=== PATIENT | female | born 1940 | race Caucasian/White ===

== ENCOUNTER → 2017-08-11 | Outpatient (CLI) | payer OTHER ==
[~2017-08-11] MED LIST: CRESTOR10 MG PO; DIOVAN 80 MG TA80 M1 PO; PLAVIX 75 MG TA75 M1 PO
== END ==
LOC: ULTRA 06:19
DX: M25.561 Pain in right knee (principal); R10.31 Right lower quadrant pain

== ENCOUNTER → 2019-06-05 | Outpatient (CLI) | payer OTHER | LOC: BC 11:32 | DX: Z12.31 Encounter for screening mammogram for malignant neoplasm of breast (principal) ==

== ENCOUNTER → 2019-09-05 | Outpatient (CLI) | payer OTHER ==
[2019-09-05 11:18] LABS: CREATININE 1.4 mg/dL (0.6-1.0)
== END ==
LOC: LAB 10:29 → CAT 10:29
PROVIDERS: Nurse Practitioner
DX: N28.1 Cyst of kidney, acquired (principal)

== ENCOUNTER → 2021-04-05 | Outpatient (CLI) | payer OTHER | LOC: ULTRA 08:58 | PROVIDERS: ATTEND Family Medicine | DX: R10.11 Right upper quadrant pain (principal) ==

== ENCOUNTER 2021-04-25 09:38 | Inpatient (IN) | payer OTHER ==
[~2021-04-25] VITALS: Ht 144.8 cm; Wt 78.0 kg
[~2021-04-25 09:38] MED LIST changes: -CRESTOR10 MG PO; +CRESTOR20 MG PO
[2021-04-25] MEDS ORDERED: METFORMIN HCL500 MG PO (09:54)
[2021-04-25] MEDS ORDERED: AVAPRO 150 MG150 M1 PO (09:54)
[2021-04-25 10:16] LABS: BASOPHILS 0.4 % (0.0-2.0); EOSINOPHILS 0.3 % (0.0-3.0); HEMATOCRIT 45.3 % (37.0-47.0); LYMPHOCYTES 14.7 % (24.0-44.0); MCH 30.4 pg (26.0-34.0); MCV 98.2 fL (80.0-100.0); MONOCYTES 9.5 % (1.0-8.0); PLATELET COUNT 191 thou/uL (150-400); POLYS 75.1 % (36.0-66.0); RBC 4.61 mil/uL (4.20-5.00); RDW 16.7 % (10.5-14.5); WBC 13.3 thou/uL (4.0-11.0)
[2021-04-25 10:31] LABS: CALCIUM 9.1 mg/dL (8.5-10.1); CREATININE 1.8 mg/dL (0.6-1.0); POTASSIUM 5.4 mmol/L (3.5-5.1)
[2021-04-25 10:41] LABS: ALBUMIN 3.4 g/dL (3.4-5.0); TOTAL BILIRUBIN 0.5 mg/dL (0.2-1.0); TOTAL PROTEIN 7.2 g/dL (6.4-8.2)
[2021-04-25 13:45] LABS: ANISOCYTOSIS 1+; POIKILOCYTOSIS 1+
[2021-04-25 15:20] LABS: ALBUMIN 3.5 g/dL (3.4-5.0); TOTAL PROTEIN 7.7 g/dL (6.4-8.2)
[2021-04-25 16:24] VITALS: BP 123/63
[2021-04-25 17:04] VITALS: BP 131/79
[2021-04-25 17:40] VITALS: BP 124/86
--- NOTE | 2021-04-25 18:35 | NUR ---
ASSUMED CARE OF PATIENT AT 1540 FROM ER. PATIENT UP ON 6LNC WITH SLIGHT LABOR BREATHING. MOST ADMISSION COMPLETED, REMAINDER WILL BE FORWARD TO DOCUMENT IMAGING SPECIALIST TO COMPLETE IF POSSIBLE. PT IN BED EATING A DINNER TRAY WITH AT BEDSIDE. PATIENT HAS NO CONCERNS AT THIS TIME.
[2021-04-25 20:15] VITALS: BP 133/77
[2021-04-26] VITALS (106 sets, daily range): BP systolic 47–165; BP diastolic 13–99
[2021-04-26 04:55] LABS: CALCIUM 9.1 mg/dL (8.5-10.1); MAGNESIUM 2.2 mg/dL (1.8-2.4); POTASSIUM 5.8 mmol/L (3.5-5.1)
[2021-04-26 04:58] LABS: HEMATOCRIT 45.2 % (37.0-47.0); HEMOGLOBIN 13.8 gm/dL (12.0-15.0); MCH 30.9 pg (26.0-34.0); MCHC 30.5 g/dL (28.0-37.0); MCV 101.5 fL (80.0-100.0); RBC 4.45 mil/uL (4.20-5.00); RDW 17.1 % (10.5-14.5); WBC 16.9 thou/uL (4.0-11.0)
--- NOTE | 2021-04-26 05:15 | NUR ---
TOURIST AGENT ACTIVATED FOR DECREASED LOC AND FROTHING FROM THE MOUTH. PT RESPONDING TO STERNAL RUB ONLY. PT IMMEDIATELY BAGGED AND ATTEMPT TO PLACE ORAL AIRWAY BY RT. PT DECOMPENSATED QUICKLY AND JOAQUIN SEAY WAS CALLED AT 0443 FOR AGONAL BREATHS AND PEA ON THE MONITOR. SEE JOAQUIN SEAY FLOWSHEET FOR ADDITIONAL DETAILS.
[2021-04-26 05:41] LABS: BE(vivo) -5.5 mmol/L (-2 to +3); HCO3 26.4 mmol/L (22.0-26.0); PCO2 87.8 mmHg (35.0-45.0); PO2 80.6 mmHg (80.0-100.0); pH 7.096 (7.360-7.450); sO2 90.4 % (92.0-98.0)
--- NOTE | 2021-04-26 07:30 | NUR ---
ORDERS FOR EVAL AND TREAT HOWEVER Pt ON VENT FOLLOWING CODE BLUE. WILL PLACE ON HOLD AND AWAIT NEW ORDERS WHEN APPROPRIATE
--- NOTE | 2021-04-26 07:51 | EKG ---
[address] [place] [address] ELECTROCARDIOGRAM REPORT Name: ELGIN SOTO Room #: 242-P ADM IN M.R.#: [id number] Admission: 04/25/21 Attend Phys: Bryan Lincoln MD Discharge: Date of : 42 Report #: [id number] [facility] ED Test Date: 2021-04-25 Test Time: 11:05:20 Pat Name: ELGIN SOTO Department: Room: 242 Gender: F Communications Executive: : 1940 Requested By: Abiel Meredith Order Number: [id number] : Blake Phelps Measurements Intervals [place] Rate: 107 P: 51 NC: 154 QRS: 73 QRSD: 82 T: 36 QT: 324 QTc: 433 Interpretive Statements Sinus tachycardia Low voltage, precordial leads No previous ECG available for comparison Electronically Signed On 04-26-2021 7:51:14 CHARTER BOAT CAPTAIN by Blake Phelps [email or web address] <ELECTRONICALLY SIGNED> By: Blake Phelps MD, [facility] 04/26/21 0751 1105 1105 Blake Phelps MD, FACC /EPI
--- NOTE | 2021-04-26 08:12 | NUR ---
ASSESSMENT CHARTED, MEDS CHARTED GIVEN. PATIENT RESTING IN BED AT START OF SHIFT, AT BEDSIDE. PATIENT ON 6 LITERS NC, LUNGS WERE COARSE AND SOUNDED VERY WET. PATIENT WAS GETTING UP TO BSC DURING THE NIGHT. PATIENT WAS FOUND NON-RESPONSIVE IN HER ROOM AFTER 0400. GOOD PULSES, SHALLOW BREATHES, RAPID RESPONSE WAS CALLED PATIENT ENDED UP CODED, INTUBATED IN THE ICU. SEE RAPID REPORTING FOR DETAILS. WAS NOTIFIED OF PATIENT STATUS CHANGE AND ROOM CHANGE.
--- NOTE | 2021-04-26 08:16 | NUR ---
PATIENT ARRIVED TO ICU AT 0515 FROM S/P CODE BLUE. PATIENT INTUBATED PRIOR TO ARRIVAL. PATIENT ST ON MONITOR, PIV PRESENT, LUNGS COARSE. LANCE FIGUEROA, PRESENT AT BEDSIDE. VERNON CATHETER, OG TUBE, AND NEW IV PLACED. NEW ABG OBTAINED, CRITICAL VALUES PRESENT. DR. ESTRADA NOTIFIED, ORDERS RECEIVED TO GET CENTRAL LINE PLACED TODAY AND START PATIENT ON VERSED AND FENTANYL FOR SEDATION. BP WAS ALSO LOW ON ARRIVAL, LEVOPHED STARTED. SOFT WRIST RESTRAINTS PLACED ON PATIENT. PATIENT'S ARRIVED, UPDATED ON PATIENT CONDITION AND EVENTS. PATIENT MORE STABLE AT THIS TIME.
[2021-04-26 08:27] LABS: CHOLESTEROL 164 mg/dL (<200); HDL CHOLESTEROL 82 mg/dL (>40); LDL CHOLESTEROL 58 mg/dL (<100); TRIGLYCERIDE 122 mg/dL (<150); VLDL 24 mg/dL (<40)
[2021-04-26 09:25] LABS: BE(vivo) -6.5 mmol/L (-2 to +3); HCO3 25.4 mmol/L (22.0-26.0); PO2 85.1 mmHg (80.0-100.0); sO2 91.5 % (92.0-98.0)
[2021-04-26 09:26] LABS: PCO2 87.1 mmHg (35.0-45.0); pH 7.082 (7.360-7.450)
--- NOTE | 2021-04-26 10:32 | 2DMMODE ---
[facility] [place] [address] 2 D/M-MODE ECHOCARDIOGRAM Name: ELGIN SOTO Room #: 242-P ADM IN M.R.#: [id number] Admission: 04/25/21 Attend Phys: Bryan Lincoln MD Discharge: Date of : 42 Report #: [id number] THIS REPORT FOR: cc: Ariel Abbott James A. DO Santiago, Patrick MD [facility] ~ ADDENDUM APPROVED REPORT Study performed: 04/26/2021 08:43:12 EXAM: Comprehensive 2D, Doppler, and color-flow Echocardiogram Patient Location: ICU Room #: 242 Status: routine BSA: 1.59 HR: 128 bpm BP: 131/35 mmHg Rhythm: Tachycardia Other Information Study Quality: Adequate Technically limited study due to body habitus, ventilator. Indications Cardiac arrest, CHF. 2D Dimensions LVOT Diam: 17.95 (18-24mm) Ascending Ao: 34.36 (22-36mm) Left Atrium: 41.30 (27-40mm) Aortic Root: 28.42 mm Volumes Left Atrial Volume (Systole) Single Plane 4CH: 47.08 mL Single Plane 2CH: 41.96 mL LA ESV Index: 30.00 mL/m2 Aortic Valve AoV Peak Andrey.: 1.78 m/s AO Peak Gr.: 12.64 mmHg LVOT Max P.43 mmHg LVOT Max V: 1.54 m/s JASMYNE Vmax: 2.19 cm2 [facility] [address] [place] [address] 2 D/M-MODE ECHOCARDIOGRAM Name: ELGIN SOTO Room #: 242-P ADM IN M.R.#: [id number] Admission: 04/25/21 Attend Phys: Bryan Lincoln, Discharge: Date of : 42 Report #: [id number] Pulmonary Valve PV Peak Andrey.: 1.26 m/s PV Peak Gr.: 6.31 mmHg Tricuspid Valve TR Peak Andrey.: 3.69 m/s RAP Estimate: 15.00 mmHg TR Peak Gr.: 55.00 mmHg PA Pressure: 70.00 mmHg Left Ventricle The left ventricle is normal size. There is normal LV segmental wall motion. There is normal left ventricular wall thickness. Left ventricular systolic function is hyperdynamic. LVEF is 70%. This study is not technically sufficient to allow evaluation of the LV diastolic function. Right Ventricle The right ventricle is normal size. The right ventricular systolic function is normal. Atria Left atrium is moderately dilated. Right atrium is moderately dilated. Aortic Valve The aortic valve is normal in structure. No aortic regurgitation is present. There is no aortic valvular stenosis. Mitral Valve Heavily calcified annulus. Moderate mitral stenosis (PPG 15mmHg, MPG 7mmHg). There is no mitral valve regurgitation noted. Tricuspid Valve The tricuspid valve is normal in structure. Mild tricuspid regurgitation. Severe pulmonary hypertension, estimated PAP is 70mmHg. Pulmonic Valve The pulmonary valve is normal in structure. Trace pulmonic regurgitation. Great Vessels The aortic root is normal in size. The ascending aorta is normal in size. IVC is dilated and collapses <50% with inspiration. Pericardium [facility] [address] [place] [address] 2 D/M-MODE ECHOCARDIOGRAM Name: ELGIN SOTO Room #: 242-P [facility] IN [facility].#: [id number] Admission: 04/25/21 Attend Phys: Bryan Lincoln, Discharge: Date of : 42 Report #: [id number] There is no pericardial effusion. <Conclusion> Normal left ventricular size/wall thickness ejection fraction at least 65% Normal right ventricle size/function Moderate biatrial enlargement Normal aortic valve structure and function Heavily calcified mitral annulus Moderate mitral valve stenosis mean gradient 7 mmHg Mild tricuspid valve insufficiency Severe pulmonary systolic pressure estimated at 70 mmHg No pericardial effusion Normal aortic size. <ELECTRONICALLY SIGNED> By: Blake Phelps MD, FACC 04/26/211031 31 31 Blake Phelps MD, FACC /INF
--- NOTE | 2021-04-26 12:00 | NUR ---
80-year-old female. HX of HTN, DM type 2,stroke 30 years ago. The patient states that for the last 2 weeks she has been feeling short of breath, she denies any chest pain, palpitations. She does state that when she gets up sometimes she gets dizzy. She states that sometimes she has nausea but this is off and on. Denies any abdominal pain, diarrhea although sometimes she has constipation. She has a little bit of swelling on her legs however she denies any other symptoms at this time. CODE BLUE while on here CCU and transfered to the ICU. On a vent 100% FIO2, peep 5. Negative for covid. Discussed during los and unit rounds. Cm visited with her spouse at bedside Ian, # [phone]. Prior to hospital she was independent, no dme, manage her own medication. drives vehicle. 13 stairs up to the bedroom and was able to do the stair everyday. hh in past, unable to recall who it was with. Will cont. following as needed.
[2021-04-26 12:03] LABS: CALCIUM 8.3 mg/dL (8.5-10.1); CREATININE 2.3 mg/dL (0.6-1.0)
[2021-04-26 12:08] LABS: POTASSIUM 6.1 mmol/L (3.5-5.1)
[2021-04-26 14:31] LABS: BE(vivo) 2.3 mmol/L (-2 to +3); HCO3 27.4 mmol/L (22.0-26.0); PCO2 44.5 mmHg (35.0-45.0); PO2 155.1 mmHg (80.0-100.0); pH 7.408 (7.360-7.450)
--- NOTE | 2021-04-26 14:56 | EKG ---
[address] [place] [address] ELECTROCARDIOGRAM REPORT Name: ELGIN SOTO Room #: 242-P ADM IN M.R.#: [id number] Admission: 04/25/21 Attend Phys: Bryan Lincoln MD Discharge: Date of : 42 Report #: [id number] [facility] Test Date: 2021-04-26 Test Time: 04:54:00 Pat Name: ELGIN SOTO Department: Room: 242 P Gender: F Appraiser Timber: MEDHAT : 1940 Requested By: Denisse Phillips Order Number: [id number] MD: Blake Phelps Measurements Intervals [place] Rate: 139 P: 37 [place]: 156 QRS: 46 QRSD: 93 T: 65 QT: 276 QTc: 420 Interpretive Statements Sinus tachycardia Borderline low voltage, extremity leads Compared to ECG 04/25/2021 11:05:20 No significant changes Electronically Signed On 04-26-2021 14:55:50 SCHOOL CROSSING GUARD SUPERVISOR by Blake Phelps [email or web address] <ELECTRONICALLY SIGNED> By: Blake Phelps MD, [facility] 04/26/21 1455 0454 045 Blake Phelps MD, FACC /EPI
--- NOTE | 2021-04-26 16:23 | NUR ---
CL PLACED LT IJ
--- NOTE | 2021-04-26 17:29 | NUR ---
discussed with Dr. Lincoln hypothermia protocol- not indicated at this time. pt aspirated one lung farooq out, foaming at mouth, hypoxia cause of code.
--- NOTE | 2021-04-26 19:30 | NUR ---
unreponsive on vent with fent/versed infusing. ST with all p-waves variable- Wandering Atrial Pacemaker. titrating levo to keep map >/= 65, elevated K+, administered "amp dextrose following by regular insulin" twice during shift, administered patriomer calcium. sodium bicarb 2 amps administered for abg's. clarified/dc'd fluid orders per Dr. Lincoln. received orders from Dr. Crow when pt having frequent pac's and short runs of afib rvr with rate up to 150's. amiodarone bolus/gtt started. lungs coarse, pink/bloody secretions from cpr/intubation, kulkarni urine output improved with lasix administration. spouse present, providing support. updated on all cares. pt critical, slowly progressing.
[2021-04-27] VITALS (106 sets, daily range): BP systolic 54–182; BP diastolic 14–95
[2021-04-27 04:36] LABS: HEMATOCRIT 38.5 % (37.0-47.0); HEMOGLOBIN 12.4 gm/dL (12.0-15.0); MCH 30.3 pg (26.0-34.0); MCHC 32.1 g/dL (28.0-37.0); RBC 4.08 mil/uL (4.20-5.00); RDW 15.7 % (10.5-14.5); WBC 17.2 thou/uL (4.0-11.0)
[2021-04-27 04:40] LABS: MCV 94.5 fL (80.0-100.0)
[2021-04-27 04:54] LABS: ALBUMIN 2.3 g/dL (3.4-5.0); CALCIUM 8.8 mg/dL (8.5-10.1); CREATININE 2.7 mg/dL (0.6-1.0); PHOSPHORUS 1.4 mg/dL (2.5-4.9); POTASSIUM 3.2 mmol/L (3.5-5.1)
--- NOTE | 2021-04-27 05:40 | NUR ---
PT HAVING BURSTS OF SVT UP TO 150 LASTING ONLY 1 TO 2 SECONDS. AMIO CONT AT AT .[address] PRICE NOTIFIED. LEFT ORDERS FOR 150 MG BOLUS OF AMIODARTONE AND TO INCREASE GTT TO 1 MG. WILL CONT TO MONITOR
--- NOTE | 2021-04-27 06:00 | NUR ---
PT IS MUCH MORE ALERT THIS HOUR DIAS REMAINS RESTRAINED
--- NOTE | 2021-04-27 06:00 | NUR ---
REMAINS INTUBATED AND SEDATED WITH FENTANYL AND VERSED. LEVOPHED FOR BP SUPPORT AMIO GTT AT 1 MG. CONT IN SINUS TACH LUNGS COARSE RHONCHI BILAT 2800 CC UO THIS SHIFT. PROGRWAAINBG TOWARD GOALS.
--- NOTE | 2021-04-27 07:47 | EKG ---
[address] [address] ELECTROCARDIOGRAM REPORT Name: ELGIN SOTO Room #: 242-P ADM IN M.R.#: [id number] Admission: 04/25/21 Attend Phys: Bryan Lincoln MD Discharge: Date of : 42 Report #: [id number] [facility] Test Date: 2021-04-26 Test Time: 16:08:37 Pat Name: ELGIN SOTO Department: Room: 242 P Gender: F Stump Shooter: DAJUAN : 1940 Requested By: Alcon Levine Order Number: [id number] MD: Blake Phelps Measurements Intervals [place] Rate: 135 P: 62 NC: 138 QRS: 56 QRSD: 76 T: 35 QT: 316 QTc: 474 Interpretive Statements SINUS ARRHYTHMIA Borderline low voltage, extremity leads Compared to ECG 04/26/2021 04:54:00 Sinus tachycardia no longer present Electronically Signed On 04-27-2021 7:46:11 BUTCHER APPRENTICE by Blake Phelps [email or web address] <ELECTRONICALLY SIGNED> By: Blake Phelps MD, [facility] 04/27/21 0746 1608 07 Blake Phelps MD, FACC /EPI
--- NOTE | 2021-04-27 07:48 | EKG ---
[address] [place] [address] ELECTROCARDIOGRAM REPORT Name: ELGIN SOTO Room #: 242-P ADM IN M.R.#: [id number] Admission: 04/25/21 Attend Phys: Bryan Lincoln MD Discharge: Date of : 42 Report #: [id number] [facility] Test Date: 2021-04-27 Test Time: 07:20:30 Pat Name: ELGIN SOTO Department: Room: 242 P Gender: F Retail Advertising Executive: CANDY : 1940 Requested By: Adair Gupta Order Number: [id number] MD: Blake Phelps Measurements Intervals [place] Rate: 110 P: 94 IA: 131 QRS: 54 QRSD: 75 T: 241 QT: 326 QTc: 442 Interpretive Statements Sinus tachycardia Multiform ventricular premature complexes Borderline low voltage, extremity leads Borderline repolarization abnormality Compared to ECG 04/26/2021 16:08:37 Ventricular premature complex(es) now present Supraventricular tachycardia no longer present Electronically Signed On 04-27-2021 7:47:59 ALLIANCE MANAGER by Blake Phelps [email or web address] <ELECTRONICALLY SIGNED> By: Blake Phelps MD, FAC 04/27/21 0747 9 9 Blake Phelps MD, [facility] /EPI
--- NOTE | 2021-04-27 09:04 | NUR ---
PATIENT TRANSFERRED TO ICU AFTER CODE BLUE AND IS ON THE VENT. WILL NEED NEW ORDERS ONCE MEDICALLY APPROPRIATE.
--- NOTE | 2021-04-27 15:47 | NUR ---
Discussed during unit rounds with pulmonary MD. Vent 70% FIO2, peep 5, amio gtt and levo. Will cont. following as needed for dc needs.
[2021-04-28] VITALS (76 sets, daily range): BP systolic 75–159; BP diastolic 31–93
--- NOTE | 2021-04-28 00:13 | HC ---
[place] [address] CONSULTATION Name: ELGIN SOTO Room #: 242-P ADM IN M.R.#: [id number] Admission: 04/25/21 Attend Phys: Bryan Lincoln MD Discharge: Date of : 42 Report #: [id number] THIS REPORT FOR: cc: Ariel Abbott James A. DO Geha, Daniel J. MD ~ DATE OF SERVICE: 04/26/2021 INFECTIOUS DISEASE CONSULTATION REASON FOR CONSULTATION: I was asked to evaluate concerning respiratory failure and aspiration pneumonia. HISTORY OF PRESENT ILLNESS: The patient is a 80-year-old admitted on 04/25/2021 with several-week history of increasing shortness of breath, intermittent nonproductive cough, lower extremity swelling without fever, chills, or sweats. No hemoptysis or sputum production. No chest pain. She did have some palpitations. On presentation, she had evidence of acute kidney injury with hyperkalemia. She subsequently had a cardiac arrest and now is intubated. There was evidence of gross aspiration. COVID screening was negative. Unclear if she has been vaccinated. No nausea, vomiting, or diarrhea reported. She now has good urine output via Gonzalez catheter. She does have underlying history of diabetes and hypertension as well as stroke. REVIEW OF SYSTEMS: A 14-point review of system was negative other than what has been described above as noted by nursing staff as the patient was intubated. ALLERGIES: Propofol. MEDICATIONS: As noted on her MAR, which were reviewed. PAST MEDICAL HISTORY: Hypertension, diabetes, stroke, hyperlipidemia, chronic kidney disease. FAMILY HISTORY: Not available. SOCIAL HISTORY: No reported tobacco use or alcohol. PHYSICAL EXAMINATION: GENERAL: Currently, afebrile, hemodynamically stable on Levophed drip. Peripheral IV in place. PICC line is to be placed. SKIN: Without rash or decubitus. No palpable adenopathy. Pupils were pinpoint. She did respond to painful stimulus and was purposeful. Mouth without mucositis. She was orally intubated. NECK: Supple. LUNGS: Coarse bilaterally. [address] [place] [address] CONSULTATION Name: ELGIN SOTO Room #: 242-P [facility] IN M.R.#: [id number] Admission: 04/25/21 Attend Phys: Bryan Lincoln MD Discharge: Date of : 42 Report #: [id number] HEART: Regular, without appreciable murmur, gallop, or rub. She was tachycardic. ABDOMEN: Soft with positive bowel sounds. No appreciable mass. GENITOURINARY: External genitalia with indwelling Gonzalez catheter. RECTAL: Not performed. EXTREMITIES: With 1+ peripheral edema to lower extremities. No cyanosis. Moves all of her extremities. LABORATORY DATA: Reviewed. MICROBIOLOGY: Reviewed. IMAGING: Chest x-ray reviewed. IMPRESSION: A 80-year-old presents with congestive heart failure, now post-code with aspiration, right lung pneumonia. She has qctew-yo-xxwnahr kidney disease in association with diabetes, hyperkalemia, and hypotension. RECOMMENDATION: We will treat for acute aspiration pneumonia. She was screened for COVID-19, which is negative. We will also screen for other community-acquired pulmonary infection. Continue full ICU support. <ELECTRONICALLY SIGNED> By: Ed Hernadez MD 04/28/21 0013 1424 2243 Ed Hernadez MD /nt
--- NOTE | 2021-04-28 04:02 | NUR ---
NO SIGNIFICANT CHANGES OVER NIGHT. PT CONTINUES TO BE IN ST WITH MANY PACS ON TELE. AMIO DRIP INFUSING FOR RATE CONTROL. SEDATION INCREASED BUT IT SEEMED TO HAVE LITTLE EFFECT ON IMPROVING HER TACHYCARDIA. PT REMAINS ON VENT WITH 40% FIO2. VERNON TO DD WITH GOOD URINE OUTPUT. TF INFUSING VIA OGT. WILL MONITOR FURTHER.
[2021-04-28 05:16] LABS: HEMATOCRIT 39.6 % (37.0-47.0); HEMOGLOBIN 12.7 gm/dL (12.0-15.0); MCHC 32.1 g/dL (28.0-37.0); MCV 93.6 fL (80.0-100.0); PLATELET COUNT 191 thou/uL (150-400); RBC 4.23 mil/uL (4.20-5.00); WBC 22.4 thou/uL (4.0-11.0)
[2021-04-28 05:38] LABS: CALCIUM 8.8 mg/dL (8.5-10.1); CREATININE 2.6 mg/dL (0.6-1.0); POTASSIUM 3.2 mmol/L (3.5-5.1)
--- NOTE | 2021-04-28 05:58 | NUR ---
LEVOPHED DRIP TITRATED DOWN SLIGHTLY. SO FAR PT IS TOLERATING IT WELL. HR SLIGHTLY LESS TACHYCARDIC WITH DECREASE IN LEVO RATE.
--- NOTE | 2021-04-28 08:37 | EKG ---
[place] [address] [facility] [employer] [place] [address] ELECTROCARDIOGRAM REPORT Name: ELGIN SOTO Room #: 242-P ADM IN M.R.#: [id number] Admission: 04/25/21 Attend Phys: Bryan Lincoln MD Discharge: Date of : 41 Report #: [id number] [facility] Test Date: 2021-04-28 Test Time: 08:03:09 Pat Name: ELGIN SOTO Department: Room: 242 P Gender: F Journeyman Electrician Pv Installer: CANDY : 1940 Requested By: Maya Phoenix Order Number: [id number] MD: Crispin Mejia Measurements Intervals [place] Rate: 143 P: 93 RI: 66 QRS: 51 QRSD: 81 T: -31 QT: 337 QTc: 520 Interpretive Statements Multifocal atrial tachycardia Abnormal R-wave progression, late transition Nonspecific ST segment abnormality Compared to ECG 04/27/2021 07:20:30 No significant change was found Electronically Signed On 04-28-2021 8:37:16 DIAMOND CUTTER by Crispin Mejia [email or web address] <ELECTRONICALLY SIGNED> By: Crispin Mejia MD, [facility] 04/28/21 0837 2 2 Crispin Mejia MD, [facility] /EPI
[2021-04-28 10:28] LABS: ABSOLUTE NEUTROPHILS 17.9 thou/uL (1.4-8.2)
[2021-04-28 10:29] LABS: ANISOCYTOSIS 1+
[2021-04-29] VITALS (51 sets, daily range): BP systolic 80–151; BP diastolic 29–54
--- NOTE | 2021-04-29 04:14 | NUR ---
PT REMAINS ON VENT AND SEDATED.SPO2 >92% ,FIO2 OF 40% THROUGHOUT THE SHIFT.SR W/OCCASIONAL PACS ON THE TELE MONITOR.ON LULÚ DRIP TO SUPPORT B/P.REmains ON AMIO DRIP PER ORDERS.JANEEN CARRIZALES,ADEQUATE UO.ASSESSMENT COMPLETED DOCUMENTED.
[2021-04-29 05:41] LABS: HEMATOCRIT 37.7 % (37.0-47.0); HEMOGLOBIN 11.9 gm/dL (12.0-15.0); MCH 30.2 pg (26.0-34.0); MCHC 31.5 g/dL (28.0-37.0); MCV 95.6 fL (80.0-100.0); RBC 3.94 mil/uL (4.20-5.00); RDW 16.3 % (10.5-14.5); WBC 19.7 thou/uL (4.0-11.0)
[2021-04-29 06:25] LABS: ALBUMIN 1.9 g/dL (3.4-5.0); CALCIUM 8.2 mg/dL (8.5-10.1); CREATININE 2.8 mg/dL (0.6-1.0); MAGNESIUM 2.2 mg/dL (1.8-2.4); PHOSPHORUS 4.7 mg/dL (2.5-4.9); POTASSIUM 4.5 mmol/L (3.5-5.1)
--- NOTE | 2021-04-29 15:20 | NUR ---
PT HAS BEEN RESTING COMFORTABLY MOST OF THE DAY, HR IN LOW 60'S TO HIGH 50'S. PT DOES NOT TOLERATE BEING OF PRESSOR SUPPORT AT ALL FOR MORE THAN A FEW MINUTES BEFORE BECOMING HYPOTENSIVE. PLAN IS TO GRADUALLY TITRATE DOWN PT VERSED TO COMPLETE A POSSIBLE CPAP TRAIL TODAY.
--- NOTE | 2021-04-29 16:48 | NUR ---
Discussed during unit rounds with pulmonary MD. vent, nutritional support. Start cpap trials.
[2021-04-30] VITALS (51 sets, daily range): BP systolic 73–143; BP diastolic 26–52
--- NOTE | 2021-04-30 04:13 | NUR ---
PT REMAINS SEDATED AND ON VENT.FENTANYL AND VERSED FOR VENT MANAGEMENT.TOLERATING SEDATION TITRATED DOWN.ON LULÚ DRIP AND AMIO DRIP FOR B/P SUPPORT AND HEART RYTHM CONTROL.PT NOT TOLERATING LULÚ TITRATION,B/P DROPS WHEN LULÚ IS TITRATED DOWN,CURENTLY INFUSING AT 1.6MCG.UO BETTER THIS SHIFT.POC IS TO HAVE CPAP TRIAL TODAY.ASSESSMENT COMPLETED DOCUMENTED.
[2021-04-30 05:34] LABS: HEMATOCRIT 35.9 % (37.0-47.0); HEMOGLOBIN 11.2 gm/dL (12.0-15.0); MCH 30.2 pg (26.0-34.0); MCHC 31.3 g/dL (28.0-37.0); MCV 96.4 fL (80.0-100.0); RBC 3.72 mil/uL (4.20-5.00); RDW 15.9 % (10.5-14.5); WBC 18.1 thou/uL (4.0-11.0)
[2021-04-30 05:59] LABS: ALBUMIN 2.6 g/dL (3.4-5.0); CALCIUM 8.8 mg/dL (8.5-10.1); CREATININE 3.4 mg/dL (0.6-1.0); PHOSPHORUS 4.6 mg/dL (2.5-4.9)
--- NOTE | 2021-04-30 15:49 | NUR ---
Vent 40%, peep 5. nutritional support. Cpap trials. Brian and Amio gtt. No anticipated dc over the weekend. Will cont following as needed.
--- NOTE | 2021-04-30 17:18 | NUR ---
PT IS NOT PROGRESSING TOWARD THE POC EVIDENCED BY NOT FOLLOWING COMMANDS WHILE SEDATION IS OFF; SHE REQUIRES INCREASING AMOUNTS OF NEOSYNEPHRINE TO MAINTAIN ADEQUATE PERFUSION. TODAY NEUROLOGY IS CONSULTED FOR A WORKUP AND A CT OF THE HEAD IS COMPLETED W/O CONTRAST. THIS PT IS MAKING ADEQUATE UO BUT HER GFR IS LOW AND CREATININE IS 3.4. NEPHRO IS FOLLOWING, FUROSEMIDE IS DIURESING HER APPROPRIATELY.
[2021-04-30 21:29] LABS: URINE BILIRUBIN NEGATIVE (Negative); URINE BLOOD 2+ (Negative); URINE CLARITY CLEAR; URINE COLOR YELLOW; URINE GLUCOSE-RANDOM* NEGATIVE (Negative); URINE KETONES NEGATIVE (Negative); URINE LEUKOCYTES-REFLEX NEGATIVE (Negative); URINE NITRITE-REFLEX NEGATIVE (Negative); URINE PROTEIN (DIPSTICK) TRACE (Negative); URINE UROBILINOGEN 0.2 E.U./dl (0.2-1.0)
[2021-04-30 21:51] LABS: BACTERIA-REFLEX 1-9 Few /HPF (None Seen); CASTS None Seen /LPF (None Seen); CRYSTALS None Seen /LPF (None Seen); SQUAMOUS 0-3 Few /LPF (0-3); URINE RBC 3-10 Few /HPF (NONE SEEN); URINE WBC-REFLEX 0-5 Rare /HPF (0-5)
[2021-05-01] VITALS (46 sets, daily range): BP systolic 93–155; BP diastolic 30–76
[2021-05-01 05:10] LABS: HEMATOCRIT 34.7 % (37.0-47.0); HEMOGLOBIN 10.7 gm/dL (12.0-15.0); MCH 29.8 pg (26.0-34.0); MCHC 30.8 g/dL (28.0-37.0); MCV 96.9 fL (80.0-100.0); RBC 3.58 mil/uL (4.20-5.00); RDW 16.4 % (10.5-14.5); WBC 17.8 thou/uL (4.0-11.0)
[2021-05-01 05:23] LABS: CALCIUM 8.6 mg/dL (8.5-10.1); CREATININE 3.8 mg/dL (0.6-1.0)
--- NOTE | 2021-05-01 07:59 | NUR ---
Pt still not waking up. +ve cough/gag/corneal reflex. grimances to oral care
--- NOTE | 2021-05-01 18:24 | NUR ---
PT STILL NOT RESPONDING TO COMMANDS DESPITE BEING OFF SEDATION FOR OVER 24HRS. PT DOES HAVE POSITIVE GAG AND GRIMACES WITH PAIN. PATIENT ALSO YAWNS. EEG IS SUPPOSED TO BE DONE WELL AN MRI FOR THE HEAD. AT BEDSIDE MOST OF THE DAY. HOME PHONE IS [phone] NAROTICS WASTED WITH MIRELA RAMIREZ, BLUE SHEETS SIGNED AND SENT TO PHARMACY.
[2021-05-01 22:00] LABS: ALBUMIN 3.1 g/dL (3.4-5.0); CREATININE 3.7 mg/dL (0.6-1.0); PHOSPHORUS 5.2 mg/dL (2.5-4.9); TOTAL BILIRUBIN 0.9 mg/dL (0.2-1.0); TOTAL PROTEIN 6.9 g/dL (6.4-8.2)
[2021-05-02] VITALS (50 sets, daily range): BP systolic 93–129; BP diastolic 34–53
--- NOTE | 2021-05-02 04:25 | NUR ---
PT ON VENT,OFF SEDATION,REMAINS UNRESPONSIVE.SOMETIMES GRIMACES DURING ORAL CARE.PT ALSO SOMETIMES BITES ON HER ETT.NO PURPOSEFUL MOVEMENTS.VERNON DD,FAIR AMOUNT OF URINE.NO PROGRESS NOTED THIS SHIFT.POC IS TO HAVE EEG AND MRI TODAY.
[2021-05-02 05:47] LABS: HEMATOCRIT 33.6 % (37.0-47.0); HEMOGLOBIN 10.6 gm/dL (12.0-15.0); MCH 29.9 pg (26.0-34.0); MCHC 31.7 g/dL (28.0-37.0); MCV 94.4 fL (80.0-100.0); RBC 3.55 mil/uL (4.20-5.00); RDW 16.1 % (10.5-14.5); WBC 20.1 thou/uL (4.0-11.0)
[2021-05-02 06:07] LABS: ALBUMIN 3.3 g/dL (3.4-5.0); CALCIUM 8.6 mg/dL (8.5-10.1); CREATININE 3.6 mg/dL (0.6-1.0); MAGNESIUM 2.2 mg/dL (1.8-2.4); POTASSIUM 4.8 mmol/L (3.5-5.1); TOTAL BILIRUBIN 0.9 mg/dL (0.2-1.0); TOTAL PROTEIN 6.7 g/dL (6.4-8.2)
--- NOTE | 2021-05-02 09:00 | NUR ---
EEG starting. Patient son in room at this time.
--- NOTE | 2021-05-02 12:49 | NUR ---
ASKED TO TRIAL PATIENT TODAY SINCE SHE IS ON MINIMAL VENT SETTINGS TO SEE HOW SHE WOULD DO. HER WOB INCREASED INTO THE 40'S AND HER VT WERE LESS THAN 100. PATIENT DIDN'T MAKE IT TO THE 5 MINUTE AI AND WAS PUT BACK ON HER ORIGINAL SETTINGS. DR ESTRADA NOTIFIED.
--- NOTE | 2021-05-02 19:57 | NUR ---
Patient not progressing towards plan of care as evidenced by continued need of the ventilator, not following commands or waking up. Neurologist discussed findings from EEG with patient spouse. Nurse updated patients spouse throughout the day on plan of care.
[2021-05-03] VITALS (68 sets, daily range): BP systolic 99–135; BP diastolic 36–67
[2021-05-03 03:55] LABS: HEMATOCRIT 30.8 % (37.0-47.0); HEMOGLOBIN 9.8 gm/dL (12.0-15.0); MCH 30.2 pg (26.0-34.0); MCHC 31.9 g/dL (28.0-37.0); MCV 94.7 fL (80.0-100.0); RBC 3.25 mil/uL (4.20-5.00); RDW 16.3 % (10.5-14.5); WBC 15.6 thou/uL (4.0-11.0)
[2021-05-03 04:02] LABS: ALBUMIN 3.5 g/dL (3.4-5.0); CREATININE 3.8 mg/dL (0.6-1.0); MAGNESIUM 2.3 mg/dL (1.8-2.4); POTASSIUM 4.2 mmol/L (3.5-5.1); TOTAL BILIRUBIN 0.9 mg/dL (0.2-1.0); TOTAL PROTEIN 6.5 g/dL (6.4-8.2)
--- NOTE | 2021-05-03 17:28 | NUR ---
PATIENT NOT PROGRESSING TOWARDS THE PLAN OF CARE. MRI DONE TODAY.
[2021-05-04] VITALS (43 sets, daily range): BP systolic 99–142; BP diastolic 42–69
[2021-05-04 05:11] LABS: HEMATOCRIT 30.4 % (37.0-47.0); HEMOGLOBIN 9.8 gm/dL (12.0-15.0); MCH 30.5 pg (26.0-34.0); MCHC 32.1 g/dL (28.0-37.0); MCV 95.1 fL (80.0-100.0); RBC 3.2 mil/uL (4.20-5.00); RDW 16.3 % (10.5-14.5); WBC 15.1 thou/uL (4.0-11.0)
[2021-05-04 05:46] LABS: ALBUMIN 3.9 g/dL (3.4-5.0); MAGNESIUM 2.5 mg/dL (1.8-2.4); POTASSIUM 3.7 mmol/L (3.5-5.1); TOTAL BILIRUBIN 0.8 mg/dL (0.2-1.0); TOTAL PROTEIN 6.9 g/dL (6.4-8.2)
--- NOTE | 2021-05-04 07:14 | NUR ---
No progress toward goals. Pt remains minimally responsive to noxious stimuli -- will grimace, slightly withdraw extremities. Continues to have positive cough/gag and corneal reflexes. No changes in oxygen needs. Monitor remains sinus rhythm with PACs; pt remains on Phenylnephrine for BP support to keep MAP >/= 60. Tolerating tube feeding well, but was having frequent liquid brown stools. FMS placed to protect skin.
--- NOTE | 2021-05-04 10:03 | EKG ---
[address] [address] ELECTROCARDIOGRAM REPORT Name: ELGIN SOTO Room #: 242-P ADM IN M.R.#: [id number] Admission: 04/25/21 Attend Phys: Bryan Lincoln MD Discharge: Date of : 42 Report #: [id number] [facility] Test Date: 2021-05-04 Test Time: 08:38:53 Pat Name: ELGIN SOTO Department: Room: 242 P Gender: F Director Phone: CANDY : 1940 Requested By: Maya Phoenix Order Number: [id number] MD: Blake Phelps Measurements Intervals [place] Rate: 73 P: MS: QRS: 60 QRSD: 84 T: 223 QT: 371 QTc: 409 Interpretive Statements Atrial fibrillation Borderline repolarization abnormality Compared to ECG 04/28/2021 08:03:09 Ectopic atrial tachycardia, multifocal no longer present ST (T wave) deviation no longer present Electronically Signed On 05-04-2021 9:24:18 SENIOR JAVA J2EE DEVELOPER by Blake Phelps [email or web address] <ELECTRONICALLY SIGNED> By: Blake Phelps MD, [facility] 05/04/21923 7 7 Blake Phelps MD, FAC /EPI
[2021-05-05] VITALS (48 sets, daily range): BP systolic 91–146; BP diastolic 43–62
[2021-05-05 04:35] LABS: BE(vivo) -2.7 mmol/L (-2 to +3); HCO3 23.4 mmol/L (22.0-26.0); PO2 71.2 mmHg (80.0-100.0); sO2 93.1 % (92.0-98.0)
[2021-05-05 04:36] LABS: pH 7.324 (7.360-7.450)
[2021-05-05 06:00] LABS: HEMATOCRIT 31.1 % (37.0-47.0); HEMOGLOBIN 9.8 gm/dL (12.0-15.0); MCH 29.8 pg (26.0-34.0); MCHC 31.4 g/dL (28.0-37.0); MCV 94.8 fL (80.0-100.0); RBC 3.28 mil/uL (4.20-5.00); RDW 16.4 % (10.5-14.5)
[2021-05-05 06:18] LABS: ALBUMIN 3.8 g/dL (3.4-5.0); CALCIUM 9.3 mg/dL (8.5-10.1); CREATININE 4.6 mg/dL (0.6-1.0); POTASSIUM 3.6 mmol/L (3.5-5.1); TOTAL BILIRUBIN 0.8 mg/dL (0.2-1.0)
--- NOTE | 2021-05-05 07:54 | EKG ---
[address] [place] [address] ELECTROCARDIOGRAM REPORT Name: ELGIN SOTO Room #: 242-P ADM IN M.R.#: [id number] Admission: 04/25/21 Attend Phys: Bryan Lincoln MD Discharge: Date of : 42 Report #: [id number] [facility] Test Date: 2021-05-05 Test Time: 07:44:22 Pat Name: ELGIN SOTO Department: Room: 242 P Gender: F Hot Walker: CANDY : 1940 Requested By: Maya Phoenix Order Number: [id number] MD: Crispin Mejia Measurements Intervals [place] Rate: 79 P: 33 OH: 165 QRS: 54 QRSD: 87 T: 176 QT: 394 QTc: 452 Interpretive Statements Sinus rhythm Nonspecific ST and T wave abnormality Prolonged QT interval Compared to ECG 05/04/2021 08:38:53 Atrial fibrillation no longer present Electronically Signed On 05-05-2021 7:54:37 CAR DROPPER by Crispin Mejia [email or web address] <ELECTRONICALLY SIGNED> By: Crispin Mejia MD, [facility] 05/05/21 0754 3 Crispin Mejia MD, [facility] /EPI
--- NOTE | 2021-05-05 18:45 | NUR ---
PT REMAINS MINIMALLY RESPONSIVE WITHOUT SEDATION ON VENT. VSS, NEOSYN GTT INFUSING PER ORDER. JANEEN, FMS TO DD. TUBE FEEDING PER PEG AT GOAL RATE OF 30ML/HR PT TOLERATES WELL. PT AT BEDSIDE THIS SHIFT. PT NOT PROGRESSING TOWRADS POC GOALS AT THIS TIME.
[2021-05-06] VITALS (67 sets, daily range): BP systolic 103–144; BP diastolic 34–55
[2021-05-06 02:32] LABS: ALBUMIN 3.4 g/dL (3.4-5.0); CALCIUM 9.5 mg/dL (8.5-10.1); CREATININE 5.5 mg/dL (0.6-1.0); POTASSIUM 4.2 mmol/L (3.5-5.1)
--- NOTE | 2021-05-06 06:34 | NUR ---
ASSUME CARE 1900. PT/VITALS STABLE. NO APPARENT PAIN NOTED. PT ON VENT/TOLERATING WELL. NO DISTRRESS NOTED. SR ON MONITOR. SOMETIMES SPONTANEOUSLY OPENS EYES ANS SEEMS TO RESPOND TO NAME BUT DOES NOT FOLLOW COMMANDS. PT CAN MOVE UPPER EXTREMITIES EPECIALLY ON LEFT SIDE. MILD EDEMA NOTED ON BILATERAL ARMS. ASSESSMENT CHARTED. PROGRESSING SLOWLY WITH POC. CR UP TO 5.5/POOR URINE OUTPUT NOTED. PLAN IS TO CONTINUE TO MONITOR AND MANAGE RESP FUNCTION, LOC, AND KIDNEY FUNCTION. WILL CONTINUE TO MONITOR AND FOLLOW WITH POC
--- NOTE | 2021-05-06 11:36 | NUR ---
PT IS SUPPOSED TO GO TO IR TODAY TO HAVE A TEMPORARY DIALYSIS PORT PLACED VIA IR. AGREEABLE AND SIGNS CONSENT ON BEHALF OF PT. CALLED IR AT 1130 TO CHECK ON THE STATUS OF WHEN WE CAN EXPECT PATIENT TO BE TAKEN TO IR AND WAS TOLD THAT THEY WOULD "CALL ME BACK" WHEN THEY FIND OUT.
[2021-05-06 12:31] LABS: APTT 25.2 Seconds (24.5-32.8); INR 1.05; PROTIME 11.4 Seconds (10.5-12.1)
--- NOTE | 2021-05-06 15:28 | NUR ---
1450-SPOKE W CHG RN IN I.R. REITERATED THAT PROCEDURE WAS ORDERED STAT FOR EMERGENT DIALYSIS. PLAN EARLIER PER I.R. WAS THEY WOULD COME TO BEDSIDE TO DO PROCEDURE ~1500. THEY STATED CASE ON TABLE, 2 TO FOLLOW & THIS PT (PER I.R.). STATED CASE ON TABLE, 2 TO FOLLOW & PT IN ICU (PER I.R). AGAIN EXPLAINED NEED FOR URGENCY OF TEMP DIALYSIS CATH TO BE PLACED. DR. MITCHELL KEPT UPDATED PER SAFETY ADMINISTRATOR.--VW
--- NOTE | 2021-05-06 15:39 | NUR ---
SPOKE WITH IR TEAM AROUND 1200 TODAY, RETURNING MY PREVIOUS CALL, THEY STATED THAT THEY WOULD BE PERFORMING THE PROCEDURE TODAY AT BEDSIDE AT 1500. IT IS NOW 1540 AND THE STAT DIALYSIS CATH STILL HAS NOT BEEN PLACED. GAME TESTER REMAINS AT BEDSIDE AWAITING CATH PLACEMENT. WILL CONTINUE TO FOLLOW UP WITH IR.
--- NOTE | 2021-05-06 16:35 | NUR ---
IR TEAM AT BEDSIDE PLACING DIALYSIS CATH AT THIS TIME.
[2021-05-07] VITALS (111 sets, daily range): BP systolic 71–155; BP diastolic 26–65
--- NOTE | 2021-05-07 07:26 | NUR ---
ASSUME CARE 1900. PT/VITALS STABLE. DIASTOLIC BP RUNS LOW IN 30s-40s. SR ON MONITOR/NO DISTRESS NOTED. TOLERATING TUBE FEEDING WELL/NO RESIDUALS NOTED. PT WIDE AWAKE BUT DOES NOT FOLLOW COMMANDS. NAP NOTED. POOR TOLERANCE TO ACTIVITY. EDEMA NOTED BUE. ASSESSMENT CHARTED. PROGRESSING MDERATELY TOWARDS POC. ABDOMEN FIRM AND MILDLY DISTENDED. PLAN IS TO CONTINUE WITH DIALYSIS TOAY AND CONTINUE TO MONITOR PT'S LOC. WILL CONTINUE TO MONITOR AND FOLLOW WITH POC
--- NOTE | 2021-05-07 09:00 | NUR ---
Discussed during unit rounds with pulmonary MD. Has a temporary dialysis line, and going to have 2nd round of dialysis today. Per report she opened her eye. Remains on vent,tube feeding for nutritional support. Spouse here daily visits. No anticipated dc over the weekend. will cont following as needed.
--- NOTE | 2021-05-07 13:40 | NUR ---
SPOKE WITH DR. ALBRIGHT AT 1145 TODAY AND HE WAS AGREEABLE TO PLACING PT BACK IN BILATERAL SOFT WRIST RESTRAINTS DUE TO CONCERN OF PT DISCONNECTING MEDICAL EQUIPMENT. PT IS BECOMING MORE AWAKE YET STILL CONFUSED AND UNABLE TO OBEY COMMANDS. SHE IS MOVING ARMS AROUND. WAS ALSO GIVEN AN ORDER FOR Q2HRS PRN 25MCG FENTANYL IVP NEEDED FOR ANY SIGNS OF PAIN/DISCOMFORT. PT HAS ET TUBE IN PLACE WELL LEFT IJ IV AND RIGHT IJ DIALYSIS CATH. PT REMAINS AT BEDSIDE, DIALYSIS IS BEING STARTED AT THIS HOUR.
--- NOTE | 2021-05-07 23:10 | NUR ---
ASSUMED CARE 1929.--VW SPOKChristopher CHRISTOPHER NP, EARLIER RE: TEMP,NEED FOR TYLENOL, ? CULTURES. 1ST SET OF BC DRAWN [facility],2ND SET 1/2 HR p LINE DRAW.--VW
[2021-05-08] VITALS (20 sets, daily range): BP systolic 91–134; BP diastolic 40–60
[2021-05-08 06:30] LABS: HEMATOCRIT 29.7 % (37.0-47.0); HEMOGLOBIN 9.4 gm/dL (12.0-15.0); MCH 30.1 pg (26.0-34.0); MCHC 31.8 g/dL (28.0-37.0); MCV 94.7 fL (80.0-100.0); RBC 3.13 mil/uL (4.20-5.00); RDW 16.7 % (10.5-14.5); WBC 19.4 thou/uL (4.0-11.0)
[2021-05-08 06:46] LABS: CALCIUM 8.3 mg/dL (8.5-10.1); MAGNESIUM 2.6 mg/dL (1.8-2.4); POTASSIUM 3.7 mmol/L (3.5-5.1)
[2021-05-08 06:56] LABS: CREATININE 3.5 mg/dL (0.6-1.0)
--- NOTE | 2021-05-08 12:31 | NUR ---
poc glucose taken and scanned on wrong patient by nahomi martinez. follow up blood glucose taken on correct account number.
[2021-05-08 20:41] LABS: URINE BLOOD 3+ (Negative); URINE CLARITY TURBID; URINE COLOR ORANGE; URINE GLUCOSE-RANDOM* NEGATIVE (Negative); URINE KETONES TRACE (Negative); URINE LEUKOCYTES-REFLEX TRACE (Negative); URINE NITRITE-REFLEX NEGATIVE (Negative); URINE PROTEIN (DIPSTICK) 3+ (Negative); URINE SPECIFIC GRAVITY >= 1.030 (1.005-1.035); URINE UROBILINOGEN 0.2 E.U./dl (0.2-1.0)
[2021-05-08 20:46] LABS: ICTOTEST (BILI CONFIRMATORY) Negative (Negative); URINE BILIRUBIN NEGATIVE (Negative)
[2021-05-08 20:57] LABS: SQUAMOUS >10 Many /LPF (0-3)
[2021-05-08 20:59] LABS: AMORPHOUS URATES Many /LPF (None Seen); BACTERIA-REFLEX >30 Many /HPF (None Seen); CASTS None Seen /LPF (None Seen); CRYSTALS None Seen /LPF (None Seen); URINE RBC 3-10 Few /HPF (NONE SEEN); URINE WBC-REFLEX 0-5 Rare /HPF (0-5)
[2021-05-09] VITALS (13 sets, daily range): BP systolic 109–137; BP diastolic 42–57
[2021-05-09 06:06] LABS: HEP B SURFACE Ab(ANTI-HBS Non Reactive (()); HEPATITIS B SURFACE AG Negative (Negative)
[2021-05-09 07:20] LABS: HEMOGLOBIN 8.9 gm/dL (12.0-15.0); MCH 30.8 pg (26.0-34.0); MCHC 32.9 g/dL (28.0-37.0); MCV 93.7 fL (80.0-100.0); RBC 2.89 mil/uL (4.20-5.00); RDW 16.5 % (10.5-14.5); WBC 17.2 thou/uL (4.0-11.0)
[2021-05-09 07:27] LABS: ALBUMIN 2.9 g/dL (3.4-5.0); CREATININE 2.9 mg/dL (0.6-1.0); PHOSPHORUS 3.8 mg/dL (2.6-4.7); POTASSIUM 3.2 mmol/L (3.5-5.1)
--- NOTE | 2021-05-09 08:12 | NUR ---
05/08/211929-ASSUMED CARE OFPT.--VW 0630-GOOD NIGHT SPENT.PT MORE INTERACTIVE AT TIME.DEFINITELY PURPOSEFUL W TRYING TO REACH ETT. MEETING GOALS W FIO2 DOWN TO .30% @ 0600.VERY STRONG,PUSHING AGAINST SIDERAILS WHEN TURNED FOR BATH BUT DID HELP HOLD HERSELF OVER. MOVING ALL OVER BED,ADJUSTING HER POSITION. IN,UPDATED.--VW
[2021-05-10] VITALS (23 sets, daily range): BP systolic 109–137; BP diastolic 42–55
[2021-05-10 04:58] LABS: HEMATOCRIT 25.6 % (37.0-47.0); HEMOGLOBIN 8.3 gm/dL (12.0-15.0); MCH 30.8 pg (26.0-34.0); MCHC 32.4 g/dL (28.0-37.0); RBC 2.69 mil/uL (4.20-5.00); RDW 17.1 % (10.5-14.5); WBC 14.2 thou/uL (4.0-11.0)
[2021-05-10 05:07] LABS: CREATININE 3.4 mg/dL (0.6-1.0); POTASSIUM 3.6 mmol/L (3.5-5.1)
--- NOTE | 2021-05-10 12:36 | NUR ---
PT HAS BEEN AT BEDSIDE ALL MORNING. RN ANSWERS ANY QUESTIONS HAS. PT ON FENT GTT FOR PAIN/VENT MANAGEMENT. PT NOW CALM AND SLEEPING. PT TOLERATING TUBE FEEDS WELL. RN SPOKE WITH NEPHROLOGY AND SHE STATED NO DIALYSIS TODAY DUE TO HAVING 600 ML URINE OUTPUT IN 24 HRS. WANTS TO KEEP DIALYSIS CATHETER IN PLACE. RT TRIED CPAP TRIAL. TRIAL ONLY LASTED 1-2 MINUTES DUE TO PT BECOMING TACHYPENIC AND O2 SAT DROPPED. RN WILL CONTINUE TO MONITOR AND FOLLOW PLAN OF CARE.
[2021-05-11] VITALS (21 sets, daily range): BP systolic 102–1598; BP diastolic 43–66
--- NOTE | 2021-05-11 05:20 | NUR ---
SLEPT ON AND OFF THIS SHIFT. TOLERATING VENT. OPENS EYES AND FOLLOWS MOVEMENT. NODDS YES/NO AT TIMES. REPOSITIONED FOR COMFORT AND SKIN CARE NEEDED. ADEQUATE URINE OUTPUT PAST LASIX 475 ML THIS SHIFT. WORKING ON GOALS AND PLAN OF CARE FOR NOC. CONTINUE TO ASSES CLOSELY.
[2021-05-11 06:04] LABS: HEMATOCRIT 27.3 % (37.0-47.0); HEMOGLOBIN 8.5 gm/dL (12.0-15.0); MCHC 31.1 g/dL (28.0-37.0); MCV 96.3 fL (80.0-100.0); RBC 2.83 mil/uL (4.20-5.00); RDW 17.3 % (10.5-14.5); WBC 13.5 thou/uL (4.0-11.0)
[2021-05-11 07:03] LABS: CALCIUM 9.2 mg/dL (8.5-10.1); POTASSIUM 3.9 mmol/L (3.5-5.1)
--- NOTE | 2021-05-11 19:52 | NUR ---
CPAP trial today around 10 am. sedation off for two hours. pt did not follow any commands on multiple attempts. Pt desat to 82% during CPAP trial. Pt failed CPAP trial. Dr. Levine aware. Pt not progressing towards her goals. Dialysis today. Took off 0.5L today.
[2021-05-12] VITALS (49 sets, daily range): BP systolic 101–149; BP diastolic 38–65
--- NOTE | 2021-05-12 04:32 | NUR ---
PT BEEN RESTING IN NO ACUTE DISTRESS.REMAINS ON VENT.ON FENTANYL FOR PAIN MANAGEMENT AND VENT MANAGEMENT.PT AWAKE AT TIMES,SEEMS TO TRACK RN WHILE IN THE ROOM AND SEEMS MORE ALERT.PT SEEMS TO UNDERSTAND SOME COMMANDS BUT DOES NOT FOLLOW.PT WAS VERY AGITATED DURING BATH TO AN EXTENT OF BRINGING HER FEET AND LEGS UP AND TRYING TO PULL HERSELF UP.MOVES BOTH ARMS W/O DIFFICULTIES.PT PROGRESSING SLOWLY TO THE GOALS.NPO AFTER MIDNOC FOR PEG AND TRACH PLACEMENT TODAY AT 1000.ASSESSMENTS COMPLETED DOCUMENTED.
[2021-05-12 05:09] LABS: CALCIUM 8.5 mg/dL (8.5-10.1); POTASSIUM 3.6 mmol/L (3.5-5.1)
[2021-05-12 05:35] LABS: CREATININE 2.4 mg/dL (0.6-1.0)
--- NOTE | 2021-05-12 06:35 | NUR ---
Chart review. Noted NPO for possible trach and peg today. After trach and peg, anticipate patient requiring LTAC when she is medically stable for discharge if she gets a trach and peg. Will cont following as needed.
--- NOTE | 2021-05-12 08:13 | NUR ---
PT IS TO HAVE TRACH AND PEG PLACEMENT TODAY AT 10AM. PT OG TUBE MEDS WERE HELD THIS AM DUE TO NPO STATUS. PT TUBE FEED HAS BEEN OFF SINCE MIDNIGHT. WILL GIVE TUBE MEDS ONCE PATIENT RETURNS FROM OR.
[2021-05-12 11:05] LABS: BE(vivo) 0.1 mmol/L (-2 to +3); HCO3 25.7 mmol/L (22.0-26.0); PCO2 46.6 mmHg (35.0-45.0); PO2 100.2 mmHg (80.0-100.0); sO2 97.3 % (92.0-98.0)
--- NOTE | 2021-05-12 12:10 | NUR ---
PT LEFT FOR OR AT 1200 FOR TRACH AND PEG. OR TEAM TRANSPORTED PT TO OR, WAS AT BEDSIDE DURING THIS TIME, SIGNED THE CONSENT FORMS.
[2021-05-12 13:50] LABS: HEMATOCRIT 25.3 % (37.0-47.0); HEMOGLOBIN 7.9 gm/dL (12.0-15.0); MCH 30.1 pg (26.0-34.0); MCHC 31.2 g/dL (28.0-37.0); MCV 96.6 fL (80.0-100.0); RBC 2.62 mil/uL (4.20-5.00); RDW 17.5 % (10.5-14.5); WBC 11.2 thou/uL (4.0-11.0)
[2021-05-13] VITALS (48 sets, daily range): BP systolic 106–151; BP diastolic 42–62
[2021-05-13 05:24] LABS: CALCIUM 8.6 mg/dL (8.5-10.1); CREATININE 3.2 mg/dL (0.6-1.0); POTASSIUM 3.6 mmol/L (3.5-5.1)
[2021-05-13 05:34] LABS: ABSOLUTE NEUTROPHILS 8.8 thou/uL (1.4-8.2); BASOPHILS 0.7 % (0.0-2.0); EOSINOPHILS 1.6 % (0.0-3.0); HEMOGLOBIN 7.6 gm/dL (12.0-15.0); LYMPHOCYTES 9.2 % (24.0-44.0); MCHC 31.8 g/dL (28.0-37.0); MCV 94.3 fL (80.0-100.0); MONOCYTES 8.2 % (1.0-8.0); PLATELET COUNT 229 thou/uL (150-400); POLYS 80.3 % (36.0-66.0); RBC 2.55 mil/uL (4.20-5.00); RDW 16.7 % (10.5-14.5)
--- NOTE | 2021-05-13 05:39 | NUR ---
PT RESTED THROUGH THE NOC IN NO ACUTE DISTRESS.PT SEEM AWAKE AND MORE ALERT THIS SHIFT.ON TRACH/VENT AT FO2 35%.TOLERATING.MOVES ALL EXTREMITIES.PT FOLLOWS SOME SIMPLE COMMANDS.PT USING MOUTH WORD TO COMMUNICATE AND GESTURES ALTHOUGH AT TIMES STAFF ARE HAVING A HARD TIME UNDERSTANDING PT.VERNON W/ADEQUATE URINE VOLUME.NAD NOTED.PT PROGRESSING FAIRLY TOWARDS GOALS.
--- NOTE | 2021-05-13 09:16 | NUR ---
PT FENTANYL GTT TURNED OFF AT 0900. PT REMAINS IN RESTRAINTS AT THIS TIME, WILL REASSESS NEED FOR PAIN CONTROL AND RESTRAINT NEEDS. CONSULT FOR PT/OT PLACED WELL. PT TOELRATING TUBE FEEDS WELL.
--- NOTE | 2021-05-13 13:14 | NUR ---
0Unit jess Gay spoke with pt's spouse earlier today regarding LTAC referrals and options as next step for vent weaning and rehab. Pt had trach/peg placed yesterday and is more alert and trying to communicate. Pt's spouse prefers [facility] d/t location but understands LTAC beds and options are limited in our area due to covid surge. Referral faxed to [facility] and [place] for review. Anticipated dc ready early to mid next week. Enteral feedings initiated per peg. Urine output had increased. Uncertain if pt will be able to get off dialysis. Vent weaning trial today. LTAC liasons have confirmed reciept of referral and they will advise the unit cm on acceptance. [facility] is aware they are the desired provider. Will follow.
--- NOTE | 2021-05-13 18:15 | NUR ---
fentanyl gtt turned off at 0900, disposed of remaining 60cc down the drain as waste. nahomi choi used as witness. blue sheet sent to pharmacy.
[2021-05-14] VITALS (23 sets, daily range): BP systolic 106–141; BP diastolic 41–70
[2021-05-14 05:21] LABS: CALCIUM 9.5 mg/dL (8.5-10.1); CREATININE 3.5 mg/dL (0.6-1.0); MAGNESIUM 2.3 mg/dL (1.8-2.4)
[2021-05-14 05:27] LABS: BASOPHILS 0.6 % (0.0-2.0); EOSINOPHILS 0.7 % (0.0-3.0); HEMOGLOBIN 7.8 gm/dL (12.0-15.0); LYMPHOCYTES 6.8 % (24.0-44.0); MCH 30.7 pg (26.0-34.0); MCHC 32.7 g/dL (28.0-37.0); MCV 93.9 fL (80.0-100.0); MONOCYTES 8.8 % (1.0-8.0); PLATELET COUNT 248 thou/uL (150-400); POLYS 83.1 % (36.0-66.0); RBC 2.55 mil/uL (4.20-5.00); RDW 16.7 % (10.5-14.5); WBC 13.2 thou/uL (4.0-11.0)
--- NOTE | 2021-05-14 07:14 | NUR ---
pt tries to communicate byu mouthing of words but they are incomprehensible. pt is able to follow commands.
--- NOTE | 2021-05-14 11:51 | HC ---
[facility] [place] [address] CONSULTATION Name: ELGIN SOTO Room #: 242-P ADM IN M.R.#: [id number] Admission: 04/25/21 Attend Phys: Bryan Lincoln MD Discharge: Date of : 42 Report #: [id number] THIS REPORT FOR: cc: Ariel Abbott James A. DO Khosla, Parveen K. MD ~ DATE OF SERVICE: 04/30/2021 HISTORY OF PRESENT ILLNESS: A 80-year-old female patient who was evaluated by me to prognosticate this patient from encephalopathy. The patient was discussed with the nurses and I reviewed the records. The patient is unable to provide any history as I understand from the nurses. She is off sedation, but she is not waking up. REVIEW OF SYSTEMS: Indicate that she was admitted from Emergency Room with respiratory problems. She had a cardiac arrest. She had some dizziness. There is a prior history of hyperkalemia, hypoxia, a prior stroke, cervical spine fracture. I do not know how that affected her. Acute kidney injury, congestive heart failure. It looks like she has multiple problems. She had a CT scan of the head done yesterday and that did not show any acute process. A 14-point review of system was attempted and it looks like from the record, she also has a history of hypertension, diabetes, hyperlipidemia. She is being followed by ID for what looks like aspiration pneumonia. This was relevant 14-point review of system. PAST MEDICAL HISTORY: Positive for CVA. Further detail is not there. FAMILY HISTORY: Unavailable. SOCIAL HISTORY: Unavailable except one of the records says that no reported tobacco or alcohol history. PHYSICAL EXAMINATION: Very limited. She was unresponsive to the painful stimuli or verbal stimuli. She has no reflexes. Her pupil was small and nonreactive and I cannot tell about the doll's eye movement. She has no meningeal sign. She is reasonably well-built individual. PHYSICAL EXAMINATION: VITAL SIGNS: Blood pressure is 143/52, pulse is 78. LABORATORY DATA: Indicate a white count of 18.1. Sodium is 135. GFR is only 13. She did have a CT scan of the head, which showed no acute changes. Cardiac examination is unremarkable. She does not appear to have any edema, thyroid mass, or carotid bruit. IMPRESSION: Encephalopathy. We will try to prognosticate her in the next few [address] [address] CONSULTATION Name: ELGIN SOTO Room #: 242-P [facility] IN M.R.#: [id number] Admission: 04/25/21 Attend Phys: Bryan Lincoln MD Discharge: Date of : 42 Report #: [id number] days by doing serial EEG. We will get an EEG tomorrow and she may need some further workup before some accurate prognostication can be done. We will also try to reach the family and talk to them about her previously expressed wishes. Thank you very much for this referral. We will follow the patient along with you. <ELECTRONICALLY SIGNED> By: Devin Hess MD 05/14/21 1151 [id number] Devin Hess MD /nt
--- NOTE | 2021-05-14 11:52 | EEG ---
[facility] [place] [address] [address] [place] [address] ELECTROENCEPHALOGRAM Name: ELGIN SOTO Room #: 242-P ADM IN M.R.#: [id number] Admission: 04/25/21 Attend Phys: Bryan Lincoln MD Discharge: Date of : 42 Report #: [id number] THIS REPORT FOR: //name// DATE OF SERVICE: 05/02/2021 This patient is being evaluated for altered mental status. EEG was done by placing the electrode by standard 10-20 system of electrode placement. A lot of artifact is present, but the background activity is poorly formed and disorganized. Most of the time it stays about 4-5 Hz and 15 microvolt. Photic stimulation is unremarkable. No active epileptiform activity was noticed. IMPRESSION: This patient's EEG is disorganized and poorly formed. That is a nonspecific abnormality, which can occur with encephalopathy, effect of psychotropic medication, dementia, etc. Clinical correlation is recommended. <ELECTRONICALLY SIGNED> By: Devin Hess MD 05/14/21 1152 [id number] [id number] Devin Hess MD /nt
--- NOTE | 2021-05-14 13:57 | NUR ---
Case discussed in ICU rounds this morning. Probation Officer visited with pt's spouse Ian at bedside; pt was sleeping. Pt is pod#2 s/p trach/peg. Advancing tube feedings as tolerated. Pt is now at 30% FIO2 with a peep of 5. She is making increased urine and may be able to discontinue dialysis. Hoping to do cpap trail today. [facility] updated and awaiting their response. They are the perfered option for pt's spouse. [facility] liason was here to visit and [facility] can also accept if desired. Likely dc ready early next week. Awaiting response from [facility]. Spouse had question about ins and levels of care. All questions answered and support provided. Will follow.
--- NOTE | 2021-05-14 14:23 | NUR ---
PT ATTEMPTED TO SEE PATIENT FOR THERAPY X2 SINCE NEW ORDERS. Pt NOT PARTICIPATING IN EITHER SESSION. SPOUSE REPORTS PATIENT MOVES LEGS INTERMITTENTLY BUT WILL NOT MOVE LEGS ON COMMAND. PT PROVIDED ADDITIONAL EDUCATION ON PROM FOR SPOUSE TO PROVIDE. REQUESTED RN ORDER PRAFO AND PREVALON AND RECOMMENDED ALTERNATING. PT WILL SIGN OFF AT THIS TIME. PLEASE RECONSULT WHEN PATIENT IS CONSISTENTLY FOLLOWING COMMANDS AND WILLING/ABLE TO PARTICIPATE.
--- NOTE | 2021-05-14 16:04 | NUR ---
CRITICAL POTASSIUM OF 2.[address] PAGED [address] PEREZ, NOTIFIED OF LAB RESULT, 20MEQ IV POTASSIUM TO BE GIVEN, RECHECK K+ LEVEL WITH AM LABS.
--- NOTE | 2021-05-14 19:38 | NUR ---
ASSUMED CARE OF PATIENT AT 1400, AT BEDSIDE. KUB SHOWING GAS DISTENTION, PEG TUBE TO LIS, NO CHANGES. VSS THROUGHOUT SHIFT, TMAX 99.1 PLAN TO WORKUP FOR LTAC PLACEMENT, POTENTIAL TEMP HD CATH REMOVAL UPCOMING.
[2021-05-15] VITALS (25 sets, daily range): BP systolic 116–147; BP diastolic 39–96
[2021-05-15 06:11] LABS: ABSOLUTE NEUTROPHILS 10.5 thou/uL (1.4-8.2); BASOPHILS 0.6 % (0.0-2.0); EOSINOPHILS 0.6 % (0.0-3.0); HEMATOCRIT 23.9 % (37.0-47.0); HEMOGLOBIN 7.8 gm/dL (12.0-15.0); LYMPHOCYTES 7.6 % (24.0-44.0); MCH 30.4 pg (26.0-34.0); MCHC 32.5 g/dL (28.0-37.0); MCV 93.4 fL (80.0-100.0); MONOCYTES 9.2 % (1.0-8.0); PLATELET COUNT 274 thou/uL (150-400); RBC 2.56 mil/uL (4.20-5.00); RDW 16.8 % (10.5-14.5); WBC 12.9 thou/uL (4.0-11.0)
[2021-05-15 06:46] LABS: CALCIUM 9.7 mg/dL (8.5-10.1); CREATININE 3.8 mg/dL (0.6-1.0)
--- NOTE | 2021-05-15 19:11 | NUR ---
RN ASSUMED PT'S CARE AT 0700-1900PM, PT HAS TREACH WITH VENT O2 30%, PT OPENS HER EYES BY VOICE, AND PT CAN FOLLOW COMMANDS, BUT PT IS VERY WEAK , PT NEEDS HELP CHANGE HER POSITION, PT'S ABD DISTENTION HAS IMPROVED, PT HAS 80ML LIQUID STOOL AT DAY SHIFT, PT STILL IS NPO , LIS FROM PEG TUBE, PT IS CONTINUING IV ABX AND IV AMIODARONE 0.5MG/MIN ( 16.7ML/HR) , PT'S VS AND O2SAT ARE STABLE AT DAY SHIFT, PT'S STAYS AT PT'S BEDSIDE.
--- NOTE | 2021-05-15 19:56 | NUR ---
WE FOLLOW DR KYLE, PT'S R NECK TEMP DIALYSIS CATHETER HAS REMOVED BY IV TEAM RN , HD CATHETER SITE HAS NO BLEEDING , NO INFECTION. PT IS TOLERATIVE.
--- NOTE | 2021-05-15 22:57 | NUR ---
PT RESTING IN BED. TRACH AND VENT REAMIN INTACT. VERNON TO DD. AMIO DRIP INTACT. PEG TUBE TO LIS. BED ALARM ON. PT NOT VERBAL, TRACKS WITH EYES, MOUTHS WORDS. LUNGS REMAIN COARSE. PALE SKIN TONE. ABD DISTENDED. DIMAS HANDS AND GENERALIZED.
[2021-05-16] VITALS (23 sets, daily range): BP systolic 115–159; BP diastolic 47–99
[2021-05-16 05:15] LABS: CALCIUM 9.8 mg/dL (8.5-10.1); CREATININE 3.9 mg/dL (0.6-1.0); HEMOGLOBIN 8.1 gm/dL (12.0-15.0); MCH 30.4 pg (26.0-34.0); MCHC 32.5 g/dL (28.0-37.0); MCV 93.6 fL (80.0-100.0); POTASSIUM 3.1 mmol/L (3.5-5.1); RBC 2.68 mil/uL (4.20-5.00); RDW 16.9 % (10.5-14.5); WBC 10.5 thou/uL (4.0-11.0)
--- NOTE | 2021-05-16 12:25 | NUR ---
ASSUMED CARE OF PT AT 0700 PT IS ALERT AND TRYING TO COMMUNICATE BY MOUTHING WORDS
--- NOTE | 2021-05-16 21:45 | NUR ---
Care assumed at 2134. Pt c/o of severe knee pain, 01/17. Pain med given, waiting to reassess pain.
[2021-05-17] VITALS (25 sets, daily range): BP systolic 98–166; BP diastolic 29–78
[2021-05-17 05:31] LABS: CALCIUM 10.1 mg/dL (8.5-10.1); CREATININE 3.6 mg/dL (0.6-1.0); POTASSIUM 3.6 mmol/L (3.5-5.1)
--- NOTE | 2021-05-17 16:44 | NUR ---
Message left for pt's spouse Ian regarding ltac referrals. [facility] liason indicates they can only accept if the pt is off dialysis and she will try to come by and visit with the pt/spouse. [facility] indicates they can accept this week and will be happy to visit with pt/spouse again or have him tour. [facility] can accept as well. All are able to visit with spouse or assist him with touring if desired. DC time frame is uncertain as pt's tube feedings have been held d/t ileus and rectal tube is in place. Clinical updated faxed to all three LTAC. Will discuss with the team tomorrow regarding an est dc date and f/u with spouse regarding their preference.
--- NOTE | 2021-05-17 18:29 | NUR ---
VSS THROUGHOUT SHIFT, PT CPAP TRIALED FOR LESS THAN 10 MIN, ELEVATED RSBI, SWITCHED BACK TO AC SETTINGS. NYDIA FROM [facility] CAME TO BEDSIDE, VISITED WITH SPOUSE, ANSWERED QUESTIONS ON FUTURE PLANS FOR PT. PT REMAINS NPO, NOTHING BY PEG TUBE, DUE TO ILEUS. DISCUSSED NPO STATUS WITH DR CID, AWARE THAT PLAVIX AND ALL OTHER "BY TUBE" MEDS BEING HELD. REPEAT KUB SHOWED IMPROVED GAS PATTERN COMPARED TO PREV STUDY. PT PARTICIPATED WITH THERAPIES AT BEDSIDE TODAY, MUCH MORE AWAKE AND ALERT TODAY. BEDBATH GIVEN, LINENS/GOWN CHANGED, HAIR COMBED, LEFT IJ CVC DRESSING CHANGED. SPOUSE RECEPTIVE TO EDUCATION.
--- NOTE | 2021-05-17 20:25 | NUR ---
TUBE FEED RESIDUAL 500 WITH RATE AT 20 ML/HR. TF ON HOLD FOR NEXT 1-2 HRS WITH RECHECK PRIOR TO RESTART.
[2021-05-18] VITALS (21 sets, daily range): BP systolic 93–145; BP diastolic 43–84
[2021-05-18 05:14] LABS: HEMATOCRIT 25.5 % (37.0-47.0); HEMOGLOBIN 8.2 gm/dL (12.0-15.0); MCH 30.4 pg (26.0-34.0); MCHC 32.3 g/dL (28.0-37.0); MCV 93.9 fL (80.0-100.0); RBC 2.72 mil/uL (4.20-5.00); RDW 16.8 % (10.5-14.5); WBC 7.3 thou/uL (4.0-11.0)
[2021-05-18 05:51] LABS: CALCIUM 9.8 mg/dL (8.5-10.1); CREATININE 3.1 mg/dL (0.6-1.0); POTASSIUM 3.3 mmol/L (3.5-5.1)
--- NOTE | 2021-05-18 07:00 | NUR ---
PATIENT ALERT AND ORIENTED, FOLLOWS COMMANDS, AND ANSWERS ALL QUESTIONS APPROPRIATELY. NO C/O PAIN OVERNOC. SR/ST THROUGHOUT THE SHIFT. POTASSIUM LOW AND REPLACED ONETIME THIS MORNING. KRISTIE-AREA AND GROIN APPEAR VERY SLIGHTLY PINK AND NYSTATIN APPLIED. WILL CONTINUE TO MONITOR. PLAN IS FOR PATIENT TO GO TO [facility], [facility] SOON.
[2021-05-18 12:49] LABS: BE(vivo) 9.5 mmol/L (-2 to +3); HCO3 34.7 mmol/L (22.0-26.0); PO2 110.7 mmHg (80.0-100.0); sO2 98.2 % (92.0-98.0)
--- NOTE | 2021-05-18 16:30 | NUR ---
KAVITHA HEARD FROM CLARITA WITH [facility] THIS AM. HE INDICATED THAT PT'S SPOUSE WAS TOURING AT 1300 AND THAT THEY HAD A BED TO ACCEPT PT THIS DAY IF MEDICALLY STABLE. CARE TEAM INDICATED THAT PT MAY BE DC READY BU MONDAY THIS WEEL. TUBE FEEDINGS STILL HELG WAITING FOR ILEUS TO RESOLVE. CM CONVEYED THIS. CM TO FOLLOW UP WITH SPOUSE TO SEE WHICH LT[facility] HE PREFERS [facility] OR [facility]. CM FOLLOWING.
--- NOTE | 2021-05-18 19:32 | NUR ---
PT PROGRESSING TOWARD GOALS. PT WAS STARTED ON PRECEDEX GTT FOR ANXIETY MANAGEMENT. HR DECREASED FROM 110S TO 70S-80S AND ANXIETY DECREASED THROUGHOUT THE SHIFT. PT WAS ABLE TO CPAP MOST OF THE DAY WITHOUT ANXIETY OR RESTLESSNESS. PT FOLLOWS COMMANDS AND MOUTHS WORDS TO EXPRESS HER NEEDS. PT WAS PLEASANT AND COOPERATIVE THROUGHOUT THE SHIFT. PT'S MARTÍN WAS AT BEDSIDE AND WAS UPDATED ON POC. MARTÍN EXPRESSED THAT HE HAS BEEN LOOKING AT [facility] AND [facility] FOR WHEN PT IS DISCHARGED. CVP WAS PLACED THIS AM AND IS BEING MONITORED. WILL CONTINUE TO MONITOR PT AND FOLLOW POC.
[2021-05-19] VITALS (24 sets, daily range): BP systolic 90–137; BP diastolic 48–75
[2021-05-19 03:56] LABS: HEMATOCRIT 23.6 % (37.0-47.0); HEMOGLOBIN 7.9 gm/dL (12.0-15.0); MCH 31.4 pg (26.0-34.0); MCHC 33.6 g/dL (28.0-37.0); MCV 93.5 fL (80.0-100.0); RBC 2.53 mil/uL (4.20-5.00); RDW 16.7 % (10.5-14.5); WBC 6.2 thou/uL (4.0-11.0)
[2021-05-19 04:47] LABS: CALCIUM 8.8 mg/dL (8.5-10.1); CREATININE 2.5 mg/dL (0.6-1.0)
[2021-05-19 05:25] LABS: POTASSIUM 2.9 mmol/L (3.5-5.1)
--- NOTE | 2021-05-19 18:57 | NUR ---
VSS THROUGHOUT SHIFT, SCHEDULE METOPROLOL FOR RATE CONTROL OF AFIB. ATTEMPTED TO CPAP TRIAL TWICE TODAY, FAILED D/T TACHYPNEA IN THE 40s SHORTLY INTO TRIAL. SPOUSE, MARTÍN, AT BEDSIDE MOST OF THE DAY, DISCUSSED POC AND PLAN THIS WEEK FOR LTAC PLACEMENT. SPOUSE STATES MOST LIKELY [facility] DUE TO BED AVAILABILITY. ASSISTED PT WITH DAILY CARES, PT WORKED WITH PT AND TOLERATED BED IN CHAIR POSITION FOR SEVERAL HOURS. TITRATED PRECEDEX TO REDUCE AGITATION, PT RESTING COMFORTABLY.
[2021-05-20] VITALS (18 sets, daily range): BP systolic 53–162; BP diastolic 31–119
[2021-05-20 06:23] LABS: CALCIUM 9.2 mg/dL (8.5-10.1); CREATININE 2.2 mg/dL (0.6-1.0); POTASSIUM 3.6 mmol/L (3.5-5.1)
[2021-05-20 07:01] LABS: HEMATOCRIT 25.4 % (37.0-47.0); HEMOGLOBIN 8.2 gm/dL (12.0-15.0); MCH 30.1 pg (26.0-34.0); MCHC 32.2 g/dL (28.0-37.0); MCV 93.6 fL (80.0-100.0); RBC 2.71 mil/uL (4.20-5.00); RDW 16.5 % (10.5-14.5); WBC 7.3 thou/uL (4.0-11.0)
--- NOTE | 2021-05-20 09:07 | NUR ---
ASSUMED CARE OF PT AT 0700 DR. DESOUZA AT BEDSIDE AT 0840, NO NEW ORDERS GIVEN PTS AT BEDSIDE AT 0900 PT IS AGGITATED AND FRUSTRATED WITH NOT BEING ABLE TO COMMUNICATE. SHE CONTINUES TO TRY TO COMMUNICATE IN HER TEJON LANGUAGE OF [place]. TOLD HER THIS MORNING THAT SHE NEEDED TO FIGHT AND SHE KEPT SHAKING HER HEAD NO.
--- NOTE | 2021-05-20 10:05 | NUR ---
Nutrition: Consider resuming tube feeds with improved ileus if not CPAPing. REC change to Glucerna 1.2 at 45 mL/hr.
[2021-05-20] MEDS ORDERED: PEPCID20 MG PER TUBE (11:41)
--- NOTE | 2021-05-20 13:49 | NUR ---
Pt cleared for dc to LTAC today. Rat Culturist spoke with spouse to advise that both [facility] each have one bed today. He stated his preference is the one close to home, [facility]. Bed confirmed with [facility] and the care team was updated. Dc orders faxed and confirmed with admissions. [facility] ambulance transport arranged for 3:30 this afternoon. Pt can be bagged per trach. Chart copy requested and to be sent with the pt. Nursing to call report. All parties aware of the dc plan and agreeable.
== END 2021-05-20 15:45 | DRG 4 ==
LOC: ER 09:38 → EROBS 13:17 → ICU 13:17 → 2N 17:32 → ICU 04-26 05:48
PROVIDERS: Emergency Medicine; Hospitalist; Internal Medicine; Internal Medicine Nephrology; Internal Medicine Pulmonary Disease; Nurse Practitioner; Nurse Practitioner Family; Pediatrics; Specialist; Surgery; ADMIT Internal Medicine; ATTEND Internal Medicine
PROC: 5A0935A Assistance with Respiratory Ventilation, Less than 24 Consecutive Hours, High Flow/Velocity Cannula (ICD-10-PCS; principal; 2021-04-25)
PROC: 5A12012 Performance of Cardiac Output, Single, Manual (ICD-10-PCS; 2021-04-26)
PROC: 0BH17EZ Insertion of Endotracheal Airway into Trachea, Via Natural or Artificial Opening (ICD-10-PCS; 2021-04-26)
PROC: 5A1955Z Respiratory Ventilation, Greater than 96 Consecutive Hours (ICD-10-PCS; 2021-04-26)
PROC: 5A1D70Z Performance of Urinary Filtration, Intermittent, Less than 6 Hours Per Day (ICD-10-PCS; 2021-05-06)
PROC: B548ZZA Ultrasonography of Superior Vena Cava, Guidance (ICD-10-PCS; 2021-05-06)
PROC: 02HV33Z Insertion of Infusion Device into Superior Vena Cava, Percutaneous Approach (ICD-10-PCS; 2021-05-06)
PROC: 5A1D70Z Performance of Urinary Filtration, Intermittent, Less than 6 Hours Per Day (ICD-10-PCS; 2021-05-10)
PROC: 5A1D70Z Performance of Urinary Filtration, Intermittent, Less than 6 Hours Per Day (ICD-10-PCS; 2021-05-11)
PROC: 0DH68UZ Insertion of Feeding Device into Stomach, Via Natural or Artificial Opening Endoscopic (ICD-10-PCS; 2021-05-12)
PROC: 0B110F4 Bypass Trachea to Cutaneous with Tracheostomy Device, Open Approach (ICD-10-PCS; 2021-05-12)
DX: J69.0 Pneumonitis due to inhalation of food and vomit (principal); J96.01 Acute respiratory failure with hypoxia; R57.0 Cardiogenic shock; I46.9 Cardiac arrest, cause unspecified; N17.0 Acute kidney failure with tubular necrosis; G92.8 Other toxic encephalopathy; I50.33 Acute on chronic diastolic (congestive) heart failure; G93.1 Anoxic brain damage, not elsewhere classified; K56.7 Ileus, unspecified; E87.0 Hyperosmolality and hypernatremia; I13.0 Hypertensive heart and chronic kidney disease with heart failure and stage 1 through stage 4 chronic kidney disease, or unspecified chronic kidney disease; R77.8 Other specified abnormalities of plasma proteins; E87.5 Hyperkalemia; E78.5 Hyperlipidemia, unspecified; E11.22 Type 2 diabetes mellitus with diabetic chronic kidney disease; N18.32 Chronic kidney disease, stage 3b; I95.9 Hypotension, unspecified; I05.0 Rheumatic mitral stenosis; I27.20 Pulmonary hypertension, unspecified; K59.00 Constipation, unspecified; E66.01 Morbid (severe) obesity due to excess calories; Z20.822 Contact with and (suspected) exposure to COVID-19; Z86.73 Personal history of transient ischemic attack (TIA), and cerebral infarction without residual deficits; Z88.8 Allergy status to other drugs, medicaments and biological substances; Z68.37 Body mass index [BMI] 37.0-37.9, adult; Z79.899 Other long term (current) drug therapy
CPT/HCPCS: 10078; 10081; 32100; 50101; 50386; 50403; 56525; 59157; 65040